=== PATIENT | male | born 1985 | race Caucasian/White ===

== ENCOUNTER 2019-10-18 15:28 | Emergency (ER) | payer OTHER ==
[~2019-10-18] VITALS: Ht 180.3 cm; Wt 95.7 kg
[2019-10-18 15:36] VITALS: Ht 180.3 cm; Wt 95.7 kg
[2019-10-18 18:07] VITALS: BP 119/88
== END 2019-10-18 18:07 | disposition home or self-care (01) ==
LOC: ED 15:28
DX: J45.901 Unspecified asthma with (acute) exacerbation (principal); Z20.828 Contact with and (suspected) exposure to other viral communicable diseases
CPT/HCPCS: J2930; U0003-CS